=== PATIENT | male | born 1970 | race American Indian/Alaskan Native ===

== ENCOUNTER 2019-08-31 15:25 | Emergency (ER) | payer SELFPAY ==
--- NOTE | 2019-08-31 15:39 | Emergency Department Report ---
Blank Doc - Documentation Documentation: 49-year-old male that presents with neck pain with radiation to left arm. Also stated has conspiation. Denies any injruies This initial assessment/diagnostic orders/clinical plan/treatment(s) is/are subject to change based on patient's health status, clinical progression and re- assessment by fellow clinical providers in the ED. Further treatment and workup at subsequent clinical providers discretion. Patient/guardians urged not to elope from the ED as their condition may be serious if not clinically assessed and managed. Initial orders include: 1- Patient sent to [facility] for further evaluation and treatment 2- Xrays
--- NOTE | 2019-08-31 16:23 | XRay Report ---
ABDOMEN 3 VIEW(S) INDICATION / CLINICAL INFORMATION: abd pain. COMPARISON: None available. FINDINGS: TUBES / LINES: None. BOWEL GAS PATTERN: No significant abnormality. FREE AIR / EXTRALUMINAL GAS: None seen. ADDITIONAL FINDINGS: Bilateral os acetabuli are incidentally noted. IMPRESSION: 1. No significant abnormality. Signer Name: Reymundo Hobbs MD Signed: 08/31/2019 4:19 PM Workstation Name: [id number]
--- NOTE | 2019-08-31 16:24 | XRay Report ---
CERVICAL SPINE 4 VIEWS INDICATION / CLINICAL INFORMATION: neck pain. COMPARISON: None available. FINDINGS: VERTEBRAE: No fracture. No significant malalignment. DISC SPACES:Mild discogenic degenerative disease C3-5. Moderate discogenic degenerative disease C5-7 PREVERTEBRAL SOFT TISSUES:No significant abnormality. ADDITIONAL FINDINGS: None. IMPRESSION: 1. No significant abnormality. Signer Name: Reymundo Hobbs MD Signed: 08/31/2019 4:20 PM Workstation Name: [id number]
[2019-08-31] MEDS ORDERED: KETOROLAC 60 MG/2 ML INJ IM ONE (18:14)
--- NOTE | 2019-08-31 18:36 | Emergency Department Report ---
ED Neck Pain/Injury HPI - General Chief Complaint: Neck Pain/Injury Stated Complaint: NECK/BACK PAIN/CONSITPATION Time Seen by Provider: 08/31/19 15:38 Mode of arrival: Ambulatory Limitations: No Limitations - History of Present Illness Initial Comments: also with c/o chronic constipation. last bm 5 days ago. no n,v, or previous abd surgeries. No meds for HTN currently, no pmd MD Complaint: neck pain -: Sudden (woke up with pain), week(s) (2) Radiation: left shoulder Severity: moderate, constant Quality: aching Consistency: constant Improves With: remaining still Worsens With: movement of extremity, movement of neck, other (palpation) Context: unknown (none woke up with pain) Associated Symptoms: tingling. denies: weakness, difficulty walking, difficulty swallowing, nausea, vomiting Treatments Prior to Arrival: none - Related Data Previous Rx's Medication Instructions Recorded Last Taken Type Naproxen [Naprosyn] 500 mg PO BID #20 tablet 08/31/19 Unknown Rx Polyethylene Glycol 3350 [Miralax 17 gm PO QDAY #2 packet 08/31/19 Unknown Rx 3350] amLODIPine [Norvasc] 5 mg PO DAILY #30 tab 08/31/19 Unknown Rx Allergies Allergy/AdvReac Type Severity Reaction Status Date / Time No Known Allergies Allergy Unverified 08/31/19 15:29 ED Review of Systems ROS: Stated complaint: NECK/BACK PAIN/CONSITPATION Other details as noted in HPI Comment: All other systems reviewed and negative ED Past Medical Hx - Past Medical History Previous Medical History?: Yes Hx Hypertension: Yes - Surgical History Past Surgical History?: No - Social History Smoking Status: Current Every Day Smoker - Medications Home Medications: Home Medications Medication Instructions Recorded Confirmed Last Taken Type Naproxen [Naprosyn] 500 mg PO BID #20 tablet 08/31/19 Unknown Rx Polyethylene Glycol 3350 [Miralax 17 gm PO QDAY #2 packet 08/31/19 Unknown Rx 3350] amLODIPine [Norvasc] 5 mg PO DAILY #30 tab 08/31/19 Unknown Rx ED Physical Exam - General Limitations: No Limitations - Other Other exam information: Gen.: No acute distress Head: Atraumatic Eyes: Normal appearance ENT: Moist mucous membranes Neck: Normal appearance, no posterior midline tenderness, no meningismus, tenderness to left trapezius muscle from back down to the shoulder Chest: Clear to auscultation bilaterally Cardiovascular: Regular rate and rhythm Abdomen: Normal appearance, soft, nontender, no rebound or guarding, normal bowel sounds Back: Normal appearance, nontender Extremity: Full range of motion, normal appearance Neuro: Alert oriented x 3, clear speech, no focal 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 COMPARISON: None available. FINDINGS: VERTEBRAE: No fracture. No significant malalignment. DISC SPACES:Mild discogenic degenerative disease C3-5. Moderate discogenic degenerative disease C5- 7 PREVERTEBRAL SOFT TISSUES:No significant abnormality. ADDITIONAL FINDINGS: None. IMPRESSION: 1. No significant abnormality. ABDOMEN 3 VIEW(S) INDICATION / CLINICAL INFORMATION: abd pain. COMPARISON: None available. FINDINGS: TUBES / LINES: None. BOWEL GAS PATTERN: No significant abnormality. FREE AIR / EXTRALUMINAL GAS: None seen. ADDITIONAL FINDINGS: Bilateral os acetabuli are incidentally noted. IMPRESSION: 1. No significant abnormality. - Medical Decision Making Patient received Toradol IM in the ED. Patient has pain to the muscles of his left side of his neck is with movement and palpation. X-ray cervical spine shows DJD. Patient will be discharged on Naprosyn and MiraLAX (for chronic constipation). Norvasc also be prescribed for chronic untreated hypertension. Outpatient follow-up encouraged. - Differential Diagnosis arthritis, radiculopathy, constipation, Critical Care Time: No Critical care attestation.: If time is entered above; I have spent that time in minutes in the direct care of this critically ill patient, excluding procedure time. ED Disposition Clinical Impression: Degenerative cervical disc, Chronic constipation, HTN (hypertension) Disposition: TO HOME OR SELFCARE Is pt being admited?: No Does the pt Need Aspirin: No Condition: Stable Instructions: Degenerative Disc Disease (ED), Constipation (ED), High Fiber Diet (ED), Hypertension (ED) Additional Instructions: Take the medication as prescribed. Follow-up with your doctor or with the doctor/clinic provided. Return if symptoms worsen as indicated by your discharge instructions. Prescriptions: Polyethylene Glycol 3350 [Miralax 3350] 17 gm PO QDAY #2 packet Naproxen [Naprosyn] 500 mg PO BID #20 tablet amLODIPine [Norvasc] 5 mg PO DAILY #30 tab Referrals: [facility] [Provider Group] - 3-5 Days (primary care doctor ) SAIMA CARDOZO MD [Staff Physician] - 3-5 Days (primary care clinic ) ELIZABETH LUCIA MD [Staff Physician] - 3-5 Days (orthopedics) Time of Disposition: 18:41
[2019-08-31 19:31] VITALS: BP 138/90
[2019-08-31] MEDS ORDERED: HYDROcodone/ACETAMINOPHEN 5-325 MG TAB PO ONE (19:44)
== END 2019-08-31 20:05 | disposition home or self-care (01) ==
LOC: ED 15:25
DX: M50.30 Other cervical disc degeneration, unspecified cervical region (principal); K59.04 Chronic idiopathic constipation; I10 Essential (primary) hypertension; F17.200 Nicotine dependence, unspecified, uncomplicated; Z79.899 Other long term (current) drug therapy
CPT/HCPCS: 72040; 74022; 96372; 99283; J1885